=== PATIENT | male | born 2000 | race Caucasian/White ===

== ENCOUNTER 2024-05-02 23:55 | Emergency (ER) | payer SELFPAY ==
[~2024-05-02] VITALS: Ht 172.7 cm; Wt 81.0 kg
[2024-05-03 00:01] VITALS: TEMP 98.6
[2024-05-03 01:56] VITALS: BP 148/82; PULSE 84; RESP 18; O2SAT 98
== END 2024-05-03 01:59 | disposition home or self-care (01) ==
LOC: EMS 05-03 00:01
DX: F32.9 Major depressive disorder, single episode, unspecified (principal); R45.851 Suicidal ideations
CPT/HCPCS: 99284; Z7502